=== PATIENT | male | born 1995 | race African-American/Black ===

== ENCOUNTER 2017-04-01 15:26 | Emergency (ER) | payer MEDICAID ==
[~2017-04-01] VITALS: Ht 193 cm; Wt 96.2 kg
[2017-04-01 15:32] VITALS: BP 124/59
== END 2017-04-01 17:08 | disposition home or self-care (01) ==
LOC: ER 15:30
DX: S62.612A Displaced fracture of proximal phalanx of right middle finger, initial encounter for closed fracture (principal); S66.901A Unspecified injury of unspecified muscle, fascia and tendon at wrist and hand level, right hand, initial encounter; F17.210 Nicotine dependence, cigarettes, uncomplicated; X58.XXXA Exposure to other specified factors, initial encounter; Y93.89 Activity, other specified; Y92.89 Other specified places as the place of occurrence of the external cause; Y99.8 Other external cause status
CPT/HCPCS: 73140